=== PATIENT | female | born 1980 | race Caucasian/White ===

== ENCOUNTER 2018-03-20 11:25 | Emergency (ER) | payer OTHER, SELFPAY ==
[2018-03-20 12:30] LABS: Absolute Lymphocytes (CBC) 1.6 K/uL (0.7-4.9); Absolute Monocytes 0.5 K/uL (0.1-1.3); Absolute Neutrophil 5.6 K/uL (1.8-8.0); Basophils % 0.7 % (0-1.3); Eosinophils % 1.7 % (0-4.4); Hematocrit 38.6 % (36.0-45.0); Lymphocytes % 20.4 % (15.3-44.8); MCH 31.5 pg (27.0-35.0); MCV 90.2 fL (80-100); MPV 8.8 fL (7.6-11.3); RBC Red Blood Cell Count 4.28 M/uL (3.86-4.86)
[2018-03-20 13:10] LABS: Urine Blood NEGATIVE (NEG); Urine Glucose NEGATIVE (NEG); Urine Protein NEGATIVE (NEG)
[2018-03-20 13:10] LABS: Urine Bacteria NONE SEEN /HPF (<20); Urine Culture Reflex Order NOT NEEDED; Urine Mucus MOD /HPF (NONE SEEN); Urine RBC <5 /HPF (NONE SEEN)
[2018-03-20 13:31] LABS: BUN Blood Urea Nitrogen 14 mg/dL (7-18); Bicarbonate 23 mmol/L (21-32); Glucose Level 92 mg/dL (74-106); Potassium 3.7 mmol/L (3.5-5.1); Sodium Level 139 mmol/L (136-145)
[2018-03-20 13:35] LABS: HCG, Quantitative < 1 mIU/mL (1-3)
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
== END 2018-03-20 14:15 | disposition home or self-care (01) ==
LOC: ER 11:25
DX: R10.2 Pelvic and perineal pain (principal); N93.9 Abnormal uterine and vaginal bleeding, unspecified; I10 Essential (primary) hypertension
CPT/HCPCS: 36415; 80048; 81003; 81015; 81025; 84702; 85025; 86850; 86900; 86901; 99284